=== PATIENT | female | born 1940 | race Two or more races ===

== ENCOUNTER 2019-07-24 23:59 | Emergency (ER) | payer OTHER ==
[~2019-07-24] VITALS: Ht 154.9 cm; Wt 69.9 kg
== END 2019-07-25 10:31 | disposition home or self-care (01) ==
LOC: ER 23:59
DX: S82.851A Displaced trimalleolar fracture of right lower leg, initial encounter for closed fracture (principal); R60.0 Localized edema; E11.9 Type 2 diabetes mellitus without complications; W01.0XXA Fall on same level from slipping, tripping and stumbling without subsequent striking against object, initial encounter; Y93.01 Activity, walking, marching and hiking; Y92.59 Other trade areas as the place of occurrence of the external cause; Y99.8 Other external cause status